=== PATIENT | female | born 1995 | race African-American/Black ===

== ENCOUNTER 2019-04-27 16:05 | Inpatient (IN) | payer OTHER ==
[~2019-04-27] VITALS: Ht 154.9 cm; Wt 88.5 kg
[2019-04-27] MEDS ORDERED: TERBUTALINE SULFATE 1 MG/ML 1ML VIAL SC ONE ×2 (16:26→16:30)
[2019-04-27] MEDS ORDERED: ONDANSETRON HCL 4 MG/2 ML VIAL IM ONE (16:30)
[2019-04-27] MEDS ORDERED: LACTATED RINGER'S 1,000 ML IV ONE (16:30)
[2019-04-27] MEDS ORDERED: PREN-96 PO (16:31)
[2019-04-27] MEDS ORDERED: LACT. RINGERS/OXYTOCIN 20UNITS 1,000 ML IV SCH (16:46)
[2019-04-27] MEDS ORDERED: LACTATED RINGER'S 1,000 ML IV SCH (16:46)
[2019-04-27 16:59] LABS: Basophils # (auto) 0.1 uL; Basophils % (auto) 0.8 % (0.0-2.0); Eosinophils # (auto) 0 uL; Hematocrit 34.6 % (36.0-46.0); Hemoglobin 12.5 g/dL (12.2-16.2); Lymphocytes # (auto) 0.6 uL; Lymphocytes % (auto) 4.1 % (10.0-50.0); Mean Corpuscular Hemoglobin 28.9 pg (28.0-32.0); Mean Corpuscular Volume 80.4 fL (80.0-100.0); Monocytes # (auto) 0.7 uL; Neutrophils # (auto) 13.3 uL; Neutrophils % (auto) 90.1 % (37.0-80.0); Nucleated Red Blood Cells % 0.1 %; Platelet Count (auto) 142 10^3/uL (140-450); Red Blood Cells 4.31 10^6/uL (4.0-5.20); Red Cell Distribution Width 13.3 % (11.8-14.3); White Blood Cell 14.8 10^3/uL (4.4-10.8)
[2019-04-27] MEDS ORDERED: PHISODERM TOP SOLN 240ML BTL TOP PRN (17:00)
[2019-04-27] MEDS ORDERED: PENICILLIN G POT 5MIL/D5 50ML 50 ML IV ONE (17:00)
[2019-04-27] MEDS ORDERED: DERMOPLAST 60ML BOTTLE TOP PRN (17:00)
[2019-04-27] MEDS ORDERED: WITCH HAZEL-GLYCERIN PAD TOP PRN (17:00)
[2019-04-27] MEDS ORDERED: LIDOCAINE 2%HCL (LOCAL ANESTH.) INJ 20ML MDV ID ONE (17:00)
[2019-04-27 17:17] LABS: Albumin 2.8 g/dL (3.4-5.0); Calcium 8.6 mg/dL (8.5-10.1)
[2019-04-27 17:21] LABS: INR 0.96 (0.9-1.15); Partial Thromboplastin Time 27.1 sec (23.64-32.05)
[2019-04-27 17:21] LABS: BUN/Creatinine Ratio 5.3; Bilirubin, Total 0.5 mg/dL (0.2-1.0); Total Protein 7.2 g/dL (6.4-8.2)
[2019-04-27 17:32] LABS: Potassium 2.9 mmol/L (3.5-5.1)
[2019-04-27] MEDS ORDERED: POTASSIUM CHL 20MEQ/100ML 100 ML IV ONE (17:45)
[2019-04-27] MEDS ORDERED: IBUPROFEN 600 MG TAB PO PRN (17:45)
[2019-04-27] MEDS ORDERED: POTASSIUM CHL 20 Meq TABLET PO ONE (17:45)
[2019-04-27] MEDS ORDERED: LACT. RINGERS/OXYTOCIN 20UNITS 500 ML IV ONE (17:54)
[2019-04-27 18:27] LABS: Urine Bacteria NONE SEEN /hpf (None Seen); Urine Blood Negative /uL (Negative); Urine Mucus FEW (None Seen); Urine Specific Gravity 1.025 (1.001-1.035); Urine WBC 1 /hpf (0 - 5)
[2019-04-27 18:40] LABS: Alcohol, Urine < 3.0 mg/dL (0-5); Amphetamine Screen, Urine NEGATIVE (NEGATIVE); Barbiturate Scree,Urine NEGATIVE (NEGATIVE); Benzodiazephine Screen, Urine NEGATIVE (NEGATIVE); Cannabinoid Screen, Urine NEGATIVE (NEGATIVE); Cocaine Screen, Urine NEGATIVE (NEGATIVE); Opiate Scree,Urine NEGATIVE (NEGATIVE); Phencyclidine Screen, Urine NEGATIVE (NEGATIVE)
[2019-04-27 19:00] VITALS: BP 104/55
[2019-04-27] MEDS: POTASSIUM CHL 20MEQ/100ML 100 ML IV SCH ×2 (19:10→20:35)
[2019-04-27] MEDS ORDERED: SODIUM CHL 0.9% 50 ML IV ONE (19:14)
[2019-04-27] MEDS ORDERED: RHO (D) IMMUNE GLOBULIN 300 MCG INJ IM ONE (21:45)
[2019-04-27 23:00] VITALS: BP 101/62
[2019-04-28 02:46] VITALS: BP 104/53
[2019-04-28 06:50] VITALS: BP 106/56
[2019-04-28 11:00] VITALS: BP 100/52
[2019-04-28] MEDS ORDERED: PIPERACILLIN-TAZOB 3.375GM 100 ML IV SCH (18:00)
[2019-04-29 06:06] LABS: RPR Non Reactive (Non Reactive); Rubella Antibodies, IgG 3.5 index (Immune >0.99)
== END 2019-04-28 13:50 | disposition left against medical advice (07) | DRG 805 ==
LOC: LDRP 16:05 → OBSVTOIN 16:05 → LDRP 16:38
PROVIDERS: ADMIT Specialist; ATTEND Specialist
PROC: 10E0XZZ Delivery of Products of Conception, External Approach (ICD-10-PCS; principal; 2019-04-27)
PROC: 0UQGXZZ Repair Vagina, External Approach (ICD-10-PCS; 2019-04-27)
DX: O69.81X0 Labor and delivery complicated by cord around neck, without compression, not applicable or unspecified (principal); O60.13X0 Preterm labor second trimester with preterm delivery third trimester, not applicable or unspecified; Z37.0 Single live birth; O71.4 Obstetric high vaginal laceration alone; O62.3 Precipitate labor; Z53.29 Procedure and treatment not carried out because of patient's decision for other reasons; Z3A.31 31 weeks gestation of pregnancy
CPT/HCPCS: 36415; 59025; 59409; 80053; 80307; 81001; 81002; 84112; 84132; 85025; 85610; 85730; 86592; 86703; 86762; 86850; 86870; 86900; 86901; 87340; 90384; 96365; 96366; 96372; G0378; J2540; J2543; J2590; J3480